=== PATIENT | female | born 1985 | race Caucasian/White ===

== ENCOUNTER 2017-05-05 22:14 | Emergency (ER) | payer OTHER ==
[~2017-05-05] VITALS: Ht 160 cm; Wt 68.0 kg
--- NOTE | ~2017-05-05 | CR72 ---
[facility]. [facility] A Service of [facility] & [facility] [place] RADIOLOGY TEXT RESULTS PATIENT: ELOY MELTON LOCATION: SED : 83 UNIT #: [id number] AGE: [address]: Berlin Tineo MD SEX: F ORDER DR: [id number] [address] [address] [id number] MR#: [id number] Acc #: [id number] NAME: ELOY MELTON : 1985 SEX: F STUDY DATE/TIME: 05/05/2017 22:50 UNIT: SED ROOM: STUDY DESCRIPTION: CR Chest Single View Portable Attending Physician: Berlin Tineo M.D. Ordering Physician: [place] Tineo M.D. Primary Care Physician: No Primary Care Physician MEDICAL IMAGING REPORT This report is preliminary unless electronic signature is present. EXAM Portable chest 05/05 at 22:50. INDICATIONS Cough, congestion and shortness of air with chest pain for the last 2 weeks. COMPARISON 05/29/2015. FINDINGS A single AP portable view of the chest shows both lungs to be clear. The heart is normal in size. The mediastinal contour is normal. No significant bone abnormalities are seen. IMPRESSION Normal portable chest. Dictated by... David Vazquez Jr., M.D. THIS IS AN ELECTRONICALLY VERIFIED REPORT David Vazquez Jr., M.D. at 05/06/2017 8:31 PM RLK/sheila TD: 05/06/2017 11:47 JOB #: [id number] MEDICAL IMAGING REPORT Page 1 of 1
[~2017-05-05 22:14] MED LIST: ALBUTEROL HFA INH; ALBUTEROL17 GM INH; AMOXICILLIN500 M1 PO; ATIVAN PO; AUGMENTIN875 M1 PO; AZITHROMYCIN250 MG PO; BACTRIM DS TABL1 TA1 PO; BENTYL10 MG; BUSPIRONE HCL7.5 MG PO; DICLOFENAC PO; DIFLUCAN100 MG PO; DOXYCYCLINE150 MG PO; FLEXERIL PO; FLEXERIL10 M1 PO; FLEXERIL10 MG PO; HYDROMET SYRUP480 ML PO; IBUPROFEN PO; IBUPROFEN800 MG PO; KEFLEX500 MG PO; LORTAB 10-5001 EACH PO; LORTAB 5/500 TA1 TA1 PO; MOTRIN400 MG PO; NAPROSYN500 MG PO; NAPROXEN PO; NO MEDICATIONS; NYQUIL D COLD295 M1 PO; ORUDIS75 M1 PO; PAXIL PO; PEN-VEE K PO; PHENERGAN DM1 ML PO; PHENERGAN25 MG PO; PREDNISONE1 MG PO; PREDNISONE50 MG PO; ROBAXIN500 MG PO; ROBITUSSIN A-C-S1 ML PO; ULTRAM PO; VIBRAMYCIN100 M1 PO; VICODIN 5/1 TAB 5/50 PO; VICODIN 5/500 T1 TAB PO; VICODIN PO; VOLTAREN50 MG PO; ZOFRAN ODT4 MG
[2017-05-05] MEDS ORDERED: NO MEDICATIONS (22:25)
== END 2017-05-06 00:22 | disposition home or self-care (01) ==
LOC: SED 22:14
DX: J40 Bronchitis, not specified as acute or chronic (principal); F17.210 Nicotine dependence, cigarettes, uncomplicated
CPT/HCPCS: 71010; 99283